=== PATIENT | female | born 2000 | race Caucasian/White ===

== ENCOUNTER 2018-05-16 21:28 | Emergency (ER) | payer MEDICAID ==
[~2018-05-16] VITALS: Ht 162.6 cm; Wt 77.6 kg
[~2018-05-16 21:28] MED LIST: BACTRIM1 TAB PO; ZOFI PO
[2018-05-16 21:37] VITALS: Ht 162.6 cm; Wt 77.6 kg
[2018-05-16 23:30] LABS: BASOPHIL % 0.4 % (0-2); PLATELET COUNT 230 x10^3mcL (130-400); RED CELL DISTRIBUTION WIDTH 13.1 % (11.5-14.5)
[2018-05-17 00:18] VITALS: BP 108/60
== END 2018-05-17 01:00 | disposition home or self-care (01) ==
LOC: ED 21:28
PROVIDERS: Emergency Medicine
DX: O20.0 Threatened abortion (principal); Z3A.01 Less than 8 weeks gestation of pregnancy
CPT/HCPCS: 36415

== ENCOUNTER 2018-12-17 16:15 | Emergency (ER) | payer OTHER ==
[~2018-12-17] VITALS: Ht 162.6 cm; Wt 90.3 kg
[2018-12-17 16:18] VITALS: Ht 162.6 cm; Wt 90.3 kg
[2018-12-17 17:25] LABS: CALCIUM 8.8 mg/dL (8.5-10.1); CARBON DIOXIDE 25.5 mmol/L (21-32); CHLORIDE SERUM 101 mmol/L (98-107); CREATININE SERUM 0.5 mg/dL (0.6-1.0); GFR1 > 60 mL/min; GLUCOSE SERUM 99 mg/dL (74-106); POTASSIUM SERUM 3.5 mmol/L (3.5-5.1); SODIUM SERUM 131 mmol/L (136-145)
[2018-12-17 17:27] LABS: BASOPHIL % 0.3 % (0-2); PLATELET COUNT 282 x10^3mcL (130-400)
[2018-12-17 17:30] LABS: ALKALINE PHOSPHATASE 160 U/L (46-116); ALT/SGPT 12 U/L (14-59); AST/SGOT 14 U/L (15-37); BILIRUBIN TOTAL 0.64 mg/dL (0.20-1.00); TOTAL PROTEIN, SERUM 7.2 g/dL (6.4-8.2)
[2018-12-17 17:33] LABS: ALBUMIN 2.8 g/dL (3.4-5.0)
[2018-12-17 17:35] LABS: RED CELL DISTRIBUTION WIDTH 15.2 % (11.5-14.5)
[2018-12-17 17:53] LABS: microscopic required? YES; urine erythrocyte NEGATIVE (NEGATIVE)
[2018-12-17 18:02] LABS: AMPHETAMINE QUAL UR NONE DETECTED (See below)
[2018-12-17 19:49] VITALS: BP 115/74
== END 2018-12-17 19:49 | disposition home or self-care (01) ==
LOC: ED 16:15
PROVIDERS: Emergency Medicine
DX: O26.893 Other specified pregnancy related conditions, third trimester (principal); O23.43 Unspecified infection of urinary tract in pregnancy, third trimester; R51 Headache; Z3A.37 37 weeks gestation of pregnancy; Z87.440 Personal history of urinary (tract) infections
CPT/HCPCS: 36415; 83880; J2270; Q0092